=== PATIENT | male | born 1940 | race Caucasian/White ===

== ENCOUNTER 2020-11-25 15:11 | Inpatient (IN) ==
[2020-11-25] MEDS ORDERED: ZALEPLON 5 MG CAPSULE PO PRN (15:13)
[2020-11-25] MEDS ORDERED: ALUMINUM/MAGNES/SIMETH MAX STR 30 ML UDCUP PO PRN (15:13)
[2020-11-25] MEDS ORDERED: BISACODYL 5 MG TABLET PO PRN (15:13)
[2020-11-25] MEDS ORDERED: ACETAMINOPHEN 325 MG TABLET PO PRN (15:13)
[2020-11-25] MEDS ORDERED: hydrALAZINE 20 MG/1 ML VIAL IV PRN (15:13)
[2020-11-25] MEDS ORDERED: ONDANSETRON 4 MG/2 ML VIAL IV PRN (15:13)
[2020-11-25] MEDS: FUROSEMIDE 40 MG/4 ML VIAL IV SCH (17:13)
[2020-11-25] MEDS: PANTOPRAZOLE 40 MG TABLET PO SCH (17:13)
[2020-11-25 17:50] LABS: Basophils % 0.1 % (0.0-0.8); Eosinophils % 0.1 % (0.00-10.9); Hematocrit 39.5 VOL% (42.0-52.0); Hemoglobin 12.7 GM/DL (14.0-18.0); Immature Granulocytes % 0.7 %; Immature Granulocytes Absolute 0.05 #; Lymphocytes # 0.6 10*3/uL (1.4-4.0); Lymphocytes % 8.7 % (21.2-54.2); Mean Corpuscular HGB Conc 32.2 GM/DL (32-36); Mean Corpuscular Volume 103.4 FL (87-102); Mean Platelet Volume 11.4 FL (9.6-12.0); Monocytes % 13.1 % (1.7-12.7); Neutrophils % 77.3 % (38.7-73.9); Platelet Count 119 T/CUMM (130-400); Red Blood Count 3.82 MC/CUMM (3.8-5.5); Red Cell Distribution Width 14.1 % (9.3-17.3); White Blood Count 7.2 T/CUMM (4-12)
[2020-11-25 18:15] LABS: Albumin 3.6 G/DL (3.4-5.0); Bilirubin,Total 4.2 MG/DL (0.20-1.00); Calcium 8.9 MG/DL (8.5-10.1); Osmolality,Calculated 267.1 MOS/KG (273-304); Potassium 4.6 MMOL/L (3.5-5.1); Total Protein 7.7 G/DL (6.4-8.2)
[2020-11-25] MEDS: DOBUTamine 500 MG/250 ML PREMIX IV SCH (18:15)
[2020-11-25 19:22] LABS: Hypochromasia 1+
[2020-11-25 19:23] LABS: Platelet Estimate Adequate
[2020-11-25] MEDS: APIXABAN 5 MG TABLET PO SCH (20:29)
[2020-11-25] MEDS: RANOLAZINE 500 MG TABLET PO SCH (20:29)
[2020-11-25] MEDS: SIMVASTATIN 40 MG TABLET PO SCH (20:29)
[2020-11-26 00:46] LABS: Basophils % 0.3 % (0.0-0.8); Eosinophils % 0.2 % (0.00-10.9); Hematocrit 34.2 VOL% (42.0-52.0); Hemoglobin 11.4 GM/DL (14.0-18.0); Immature Granulocytes % 0.3 %; Immature Granulocytes Absolute 0.02 #; Lymphocytes # 0.4 10*3/uL (1.4-4.0); Lymphocytes % 7.5 % (21.2-54.2); Mean Corpuscular HGB Conc 33.3 GM/DL (32-36); Mean Corpuscular Volume 98.8 FL (87-102); Mean Platelet Volume 11.2 FL (9.6-12.0); Monocytes % 16.6 % (1.7-12.7); Neutrophils % 75.1 % (38.7-73.9); Platelet Count 98 T/CUMM (130-400); Red Blood Count 3.46 MC/CUMM (3.8-5.5); Red Cell Distribution Width 13.9 % (9.3-17.3); White Blood Count 5.8 T/CUMM (4-12)
[2020-11-26 01:03] LABS: Calcium 8.7 MG/DL (8.5-10.1); Osmolality,Calculated 266.5 MOS/KG (273-304); Risk Ratio 2.3
[2020-11-26 04:16] LABS: Hypochromasia Slight; Lymphocytes 7 % (20-55); Microcytosis Slight; Platelet Estimate Decreased; Segmented Neutrophils 76 % (50-85); Total Cells Counted 100
[2020-11-26] MEDS: SODIUM CHLORIDE 0.9% 1,000 ML IV SCH ×3 (08:18→21:42)
[2020-11-26] MEDS ORDERED: POLYETHYLENE GLYCOL POWDER 17 GM PACK PO SCH (09:00)
[2020-11-26] MEDS: PANTOPRAZOLE 40 MG TABLET PO SCH (10:01)
[2020-11-26] MEDS: RANOLAZINE 500 MG TABLET PO SCH ×2 (10:01→21:35)
[2020-11-26] MEDS: APIXABAN 5 MG TABLET PO SCH ×2 (10:01→21:34)
[2020-11-26] MEDS: ASPIRIN EC 81 MG TABLET PO SCH (10:01)
[2020-11-26] MEDS: MULTIVITAMIN LIQUID (CENTRUM) 60 ML BOTTLE PO SCH (10:02)
[2020-11-26] MEDS: METOPROLOL SUCCINATE XL 50 MG TABLET PO SCH (10:02)
[2020-11-26] MEDS: FUROSEMIDE 40 MG/4 ML VIAL IV SCH ×2 (10:03→18:49)
[2020-11-26] MEDS: DOBUTamine 500 MG/250 ML PREMIX IV SCH ×2 (11:02→16:41)
[2020-11-26] MEDS: SIMVASTATIN 40 MG TABLET PO SCH (21:34)
[2020-11-26] MEDS: POLYETHYLENE GLYCOL POWDER 17 GM PACK PO SCH (21:49)
[2020-11-27] MEDS: DOBUTamine 500 MG/250 ML PREMIX IV SCH ×2 (03:14→16:44)
[2020-11-27 04:29] LABS: Basophils % 0.2 % (0.0-0.8); Eosinophils # 0.1 10*3/uL (0.0-0.87); Eosinophils % 1.1 % (0.00-10.9); Hematocrit 32.5 VOL% (42.0-52.0); Hemoglobin 10.7 GM/DL (14.0-18.0); Immature Granulocytes % 0.5 %; Immature Granulocytes Absolute 0.03 #; Lymphocytes # 0.5 10*3/uL (1.4-4.0); Lymphocytes % 8.1 % (21.2-54.2); Mean Corpuscular HGB Conc 32.9 GM/DL (32-36); Mean Corpuscular Volume 99.1 FL (87-102); Mean Platelet Volume 10.8 FL (9.6-12.0); Monocytes % 17.6 % (1.7-12.7); Neutrophils % 72.5 % (38.7-73.9); Platelet Count 98 T/CUMM (130-400); Red Blood Count 3.28 MC/CUMM (3.8-5.5); Red Cell Distribution Width 13.9 % (9.3-17.3); White Blood Count 6.3 T/CUMM (4-12)
[2020-11-27 04:49] LABS: Eosinophils 2 % (0-10); Hypochromasia 1+; Lymphocytes 4 % (20-55); Microcytosis 1+; Platelet Estimate Decreased; Segmented Neutrophils 79 % (50-85); Total Cells Counted 100
[2020-11-27 05:07] LABS: Calcium 8.4 MG/DL (8.5-10.1); Osmolality,Calculated 264.2 MOS/KG (273-304); Potassium 3.3 MMOL/L (3.5-5.1)
[2020-11-27] MEDS ORDERED: POTASSIUM CHLORIDE 20 MEQ TABLET PO ONE (07:03)
[2020-11-27] MEDS: FUROSEMIDE 40 MG/4 ML VIAL IV SCH ×2 (10:09→17:31)
[2020-11-27] MEDS: ASPIRIN EC 81 MG TABLET PO SCH (10:10)
[2020-11-27] MEDS: PANTOPRAZOLE 40 MG TABLET PO SCH (10:10)
[2020-11-27] MEDS: RANOLAZINE 500 MG TABLET PO SCH ×2 (10:10→21:01)
[2020-11-27] MEDS: APIXABAN 5 MG TABLET PO SCH ×2 (10:10→21:01)
[2020-11-27] MEDS: METOPROLOL SUCCINATE XL 50 MG TABLET PO SCH (10:11)
[2020-11-27] MEDS: MULTIVITAMIN LIQUID (CENTRUM) 60 ML BOTTLE PO SCH (10:11)
[2020-11-27] MEDS: POLYETHYLENE GLYCOL POWDER 17 GM PACK PO SCH (21:01)
[2020-11-27] MEDS: SIMVASTATIN 40 MG TABLET PO SCH (21:02)
[2020-11-28 05:44] LABS: Basophils % 0.3 % (0.0-0.8); Eosinophils # 0.1 10*3/uL (0.0-0.87); Eosinophils % 2.1 % (0.00-10.9); Hematocrit 33.6 VOL% (42.0-52.0); Hemoglobin 11.4 GM/DL (14.0-18.0); Immature Granulocytes % 0.5 %; Immature Granulocytes Absolute 0.03 #; Lymphocytes # 0.5 10*3/uL (1.4-4.0); Lymphocytes % 8.4 % (21.2-54.2); Mean Corpuscular HGB Conc 33.9 GM/DL (32-36); Mean Corpuscular Volume 97.4 FL (87-102); Monocytes % 17.2 % (1.7-12.7); Neutrophils % 71.5 % (38.7-73.9); Platelet Count 107 T/CUMM (130-400); Red Blood Count 3.45 MC/CUMM (3.8-5.5); Red Cell Distribution Width 14.1 % (9.3-17.3); White Blood Count 5.8 T/CUMM (4-12)
[2020-11-28 06:12] LABS: Eosinophils 2 % (0-10); Lymphocytes 10 % (20-55); Platelet Estimate Adequate; Segmented Neutrophils 80 % (50-85); Total Cells Counted 100
[2020-11-28 06:46] LABS: Calcium 8.4 MG/DL (8.5-10.1); Osmolality,Calculated 271.5 MOS/KG (273-304); Potassium 3.7 MMOL/L (3.5-5.1)
[2020-11-28 08:01] VITALS: BP 121/62
[2020-11-28] MEDS: FUROSEMIDE 40 MG/4 ML VIAL IV SCH (08:58)
[2020-11-28] MEDS: RANOLAZINE 500 MG TABLET PO SCH (08:58)
[2020-11-28] MEDS: METOPROLOL SUCCINATE XL 50 MG TABLET PO SCH (08:58)
[2020-11-28] MEDS: PANTOPRAZOLE 40 MG TABLET PO SCH (08:59)
[2020-11-28] MEDS: ASPIRIN EC 81 MG TABLET PO SCH (08:59)
[2020-11-28] MEDS: APIXABAN 5 MG TABLET PO SCH (08:59)
[2020-11-28] MEDS: MULTIVITAMIN LIQUID (CENTRUM) 60 ML BOTTLE PO SCH (08:59)
== END 2020-11-28 11:46 | disposition home or self-care (01) | DRG 291 ==
LOC: INTOOBSV 15:42 → N.TELES 15:42
PROVIDERS: ADMIT Internal Medicine Interventional Cardiology; ATTEND Internal Medicine Interventional Cardiology

== ENCOUNTER 2021-02-16 17:58 | Inpatient (IN) ==
[2021-02-16] MEDS ORDERED: ONDANSETRON 4 MG/2 ML VIAL IV STA (20:38)
[2021-02-16 21:20] LABS: Basophils % 0.1 % (0.0-0.8); Hematocrit 35.1 VOL% (42.0-52.0); Hemoglobin 11.7 GM/DL (14.0-18.0); Immature Granulocytes % 1.3 %; Immature Granulocytes Absolute 0.11 #; Lymphocytes # 0.6 10*3/uL (1.4-4.0); Lymphocytes % 7.1 % (21.2-54.2); Mean Corpuscular HGB Conc 33.3 GM/DL (32-36); Mean Corpuscular Volume 98.9 FL (87-102); Mean Platelet Volume 12.3 FL (9.6-12.0); Monocytes % 12.3 % (1.7-12.7); Neutrophils % 79.2 % (38.7-73.9); Platelet Count 98 T/CUMM (130-400); Red Blood Count 3.55 MC/CUMM (3.8-5.5); Red Cell Distribution Width 18.8 % (9.3-17.3); White Blood Count 8.5 T/CUMM (4-12)
[2021-02-16 21:49] LABS: Albumin 3.3 G/DL (3.4-5.0); Calcium 8.8 MG/DL (8.5-10.1); Osmolality,Calculated 284.8 MOS/KG (273-304); Potassium 5.8 MMOL/L (3.5-5.1); Total Protein 7.8 G/DL (6.4-8.2)
[2021-02-16] MEDS ORDERED: SODIUM CHLORIDE 0.9% 500 ML IV STA (22:15)
[2021-02-16] MEDS ORDERED: DOBUTamine 500 MG/250 ML PREMIX IV PRN (22:23)
[2021-02-16] MEDS ORDERED: HYDROCORTISONE 100 MG VIAL IV STA (22:26)
[2021-02-16] MEDS ORDERED: PROMETHAZINE 25 MG/1 ML VIAL IM PRN (23:08)
[2021-02-16] MEDS ORDERED: MORPHINE 2 MG/1 ML SYRINGE IV PRN (23:08)
[2021-02-16] MEDS ORDERED: DEXTROSE 50% 25 GM/50 ML VIAL IV PRN (23:08)
[2021-02-16] MEDS ORDERED: ONDANSETRON 4 MG/2 ML VIAL IV PRN (23:08)
[2021-02-16] MEDS ORDERED: GLUCAGON 1 MG VIAL IM PRN (23:08)
[2021-02-16] MEDS ORDERED: ACETAMINOPHEN 325 MG TABLET PO PRN (23:08)
[2021-02-17 01:10] LABS: Hepatitis B Core IgM Quant 0.09 Index; Hepatitis B Surface Ag Quant < 0.10 Index; Hepatitis B Surface Ag Result Non-Reactive (NonReactive); Hepatitis C Virus Ab Quant 0.06 Index; Hepatitis C Virus Ab Result Non-Reactive (NonReactive)
[2021-02-17] MEDS: ALBUTEROL/IPRATROPIUM 3 ML NEB RESP TX SCH ×4 (01:20→18:25)
[2021-02-17] MEDS ORDERED: SODIUM POLYSTYRENE SULFATE 15 GM/60 ML BOTTLE PO ONE (01:46)
[2021-02-17] MEDS ORDERED: SODIUM CHLORIDE 0.9% 1,000 ML IV SCH (02:00)
[2021-02-17 02:48] LABS: Bilirubin,Urine Negative (Negative); Blood, Urine Negative (Negative); Glucose,Urine (UA) Negative (Negative); Hyaline Casts,Urine 33 /LPF (0-3); Ketones,Urine Negative (Negative); Nitrite,Urine Negative (Negative); Protein,Urine 100 MG/DL; RBC,Urine 2 /HPF (0-4); Squamous Epithelial Cell,Urine Occasional /HPF (0-10); Urine Appearance CLOUDY (Clear); Urine Color Amber (Yellow); Urine Specific Gravity 1.017 (1.001-1.035)
[2021-02-17 05:31] LABS: Hematocrit 32.8 VOL% (42.0-52.0); Hemoglobin 10.8 GM/DL (14.0-18.0); Immature Granulocytes Absolute 0.08 #; Lymphocytes # 0.4 10*3/uL (1.4-4.0); Mean Corpuscular HGB Conc 32.9 GM/DL (32-36); Mean Corpuscular Volume 99.1 FL (87-102); Mean Platelet Volume 12.3 FL (9.6-12.0); Monocytes % 7.4 % (1.7-12.7); NRBC # 0.07 10*3/uL; Neutrophils % 86.6 % (38.7-73.9); Platelet Count 95 T/CUMM (130-400); Red Blood Count 3.31 MC/CUMM (3.8-5.5); Red Cell Distribution Width 18.8 % (9.3-17.3); White Blood Count 8.1 T/CUMM (4-12)
[2021-02-17 06:11] LABS: Bilirubin,Total 7.8 MG/DL (0.20-1.00); Calcium 8.4 MG/DL (8.5-10.1); Osmolality,Calculated 291.4 MOS/KG (273-304); Risk Ratio 6.13; Total Protein 7.1 G/DL (6.4-8.2); VLDL Cholesterol 11.2 MG/DL
[2021-02-17] MEDS: ASPIRIN EC 81 MG TABLET PO SCH (08:20)
[2021-02-17] MEDS: PANTOPRAZOLE 40 MG TABLET PO SCH (08:20)
[2021-02-17] MEDS ORDERED: ENOXAPARIN 40 MG/0.4 ML SYRINGE SUBCUT SCH (09:00)
[2021-02-17] MEDS ORDERED: APIXABAN 5 MG TABLET PO SCH (09:00)
[2021-02-17] MEDS: DOBUTamine 500 MG/250 ML PREMIX IV SCH (14:09)
[2021-02-17] MEDS: SODIUM CHLORIDE 1 GM TABLET PO SCH ×2 (15:21→21:02)
[2021-02-17] MEDS: APIXABAN 2.5 MG TABLET PO SCH (21:02)
[2021-02-18] MEDS: ALBUTEROL/IPRATROPIUM 3 ML NEB RESP TX SCH ×4 (02:35→19:00)
[2021-02-18 06:42] VITALS: BP 107/56
[2021-02-18 08:15] LABS: Eosinophils % 0.1 % (0.00-10.9); Hematocrit 31.5 VOL% (42.0-52.0); Hemoglobin 10.9 GM/DL (14.0-18.0); Immature Granulocytes % 0.5 %; Immature Granulocytes Absolute 0.04 #; Lymphocytes # 0.5 10*3/uL (1.4-4.0); Mean Corpuscular HGB Conc 34.6 GM/DL (32-36); Mean Corpuscular Volume 96.6 FL (87-102); Mean Platelet Volume 11.8 FL (9.6-12.0); Monocytes % 14.3 % (1.7-12.7); NRBC # 0.06 10*3/uL; Neutrophils % 79.1 % (38.7-73.9); Platelet Count 101 T/CUMM (130-400); Red Blood Count 3.26 MC/CUMM (3.8-5.5); Red Cell Distribution Width 18.4 % (9.3-17.3); White Blood Count 8.2 T/CUMM (4-12)
[2021-02-18] MEDS: PANTOPRAZOLE 40 MG TABLET PO SCH (08:40)
[2021-02-18] MEDS: SODIUM CHLORIDE 1 GM TABLET PO SCH ×2 (08:40→20:27)
[2021-02-18] MEDS: APIXABAN 2.5 MG TABLET PO SCH ×2 (08:40→20:27)
[2021-02-18] MEDS: ASPIRIN EC 81 MG TABLET PO SCH (08:40)
[2021-02-18 08:43] LABS: Calcium 8.5 MG/DL (8.5-10.1); Osmolality,Calculated 277.8 MOS/KG (273-304); Potassium 3.7 MMOL/L (3.5-5.1)
[2021-02-18 08:58] LABS: Hypochromasia Slight; Platelet Estimate Decreased
[2021-02-18] MEDS: DOBUTamine 500 MG/250 ML PREMIX IV SCH ×2 (09:55→12:31)
[2021-02-19] MEDS: ALBUTEROL/IPRATROPIUM 3 ML NEB RESP TX SCH ×4 (00:06→19:00)
[2021-02-19] MEDS: FLUTICASONE 50 MCG NASAL SPRAY 16 GM BOTTLE BOTH NARES PRN ×2 (01:15→21:24)
[2021-02-19 05:58] LABS: Basophils % 0.1 % (0.0-0.8); Eosinophils % 0.5 % (0.00-10.9); Hematocrit 32.5 VOL% (42.0-52.0); Hemoglobin 11.1 GM/DL (14.0-18.0); Immature Granulocytes % 0.8 %; Immature Granulocytes Absolute 0.06 #; Lymphocytes # 0.5 10*3/uL (1.4-4.0); Lymphocytes % 6.6 % (21.2-54.2); Mean Corpuscular HGB Conc 34.2 GM/DL (32-36); Mean Corpuscular Volume 97.3 FL (87-102); Mean Platelet Volume 11.3 FL (9.6-12.0); Monocytes % 14.5 % (1.7-12.7); NRBC # 0.08 10*3/uL; Neutrophils % 77.5 % (38.7-73.9); Platelet Count 91 T/CUMM (130-400); Red Blood Count 3.34 MC/CUMM (3.8-5.5); Red Cell Distribution Width 18.5 % (9.3-17.3); White Blood Count 7.7 T/CUMM (4-12)
[2021-02-19 06:15] LABS: Calcium 8.4 MG/DL (8.5-10.1); Osmolality,Calculated 275.6 MOS/KG (273-304); Potassium 3.7 MMOL/L (3.5-5.1)
[2021-02-19 06:19] LABS: Platelet Estimate Decreased
[2021-02-19] MEDS: ASPIRIN EC 81 MG TABLET PO SCH (08:20)
[2021-02-19] MEDS: APIXABAN 2.5 MG TABLET PO SCH ×2 (08:20→21:24)
[2021-02-19] MEDS: PANTOPRAZOLE 40 MG TABLET PO SCH (08:20)
[2021-02-19] MEDS: DOBUTamine 500 MG/250 ML PREMIX IV SCH (12:45)
[2021-02-20] MEDS: ALBUTEROL/IPRATROPIUM 3 ML NEB RESP TX SCH ×4 (01:25→18:45)
[2021-02-20 05:34] LABS: Basophils % 0.1 % (0.0-0.8); Eosinophils # 0.1 10*3/uL (0.0-0.87); Eosinophils % 1.3 % (0.00-10.9); Hematocrit 33.5 VOL% (42.0-52.0); Hemoglobin 11.3 GM/DL (14.0-18.0); Immature Granulocytes % 0.7 %; Immature Granulocytes Absolute 0.06 #; Lymphocytes # 0.6 10*3/uL (1.4-4.0); Lymphocytes % 7.5 % (21.2-54.2); Mean Corpuscular HGB Conc 33.7 GM/DL (32-36); Mean Corpuscular Volume 96.8 FL (87-102); Mean Platelet Volume 10.8 FL (9.6-12.0); Monocytes % 16.6 % (1.7-12.7); NRBC # 0.06 10*3/uL; Neutrophils % 73.8 % (38.7-73.9); Red Cell Distribution Width 18.6 % (9.3-17.3); White Blood Count 8.5 T/CUMM (4-12)
[2021-02-20 05:46] LABS: Platelet Count 83 T/CUMM (130-400); Red Blood Count 3.46 MC/CUMM (3.8-5.5)
[2021-02-20 06:00] LABS: Hypochromasia Slight; Lymphocytes 6 % (20-55); Microcytosis Slight; Nucleated Red Blood Cells 1 (0-5); Platelet Estimate Decreased; Segmented Neutrophils 82 % (50-85); Total Cells Counted 100
[2021-02-20 06:03] LABS: Calcium 8.4 MG/DL (8.5-10.1); Osmolality,Calculated 266.2 MOS/KG (273-304); Potassium 3.4 MMOL/L (3.5-5.1)
[2021-02-20] MEDS ORDERED: POTASSIUM CHLORIDE 20 MEQ TABLET PO ONE (08:54)
[2021-02-20] MEDS: ASPIRIN EC 81 MG TABLET PO SCH (08:55)
[2021-02-20] MEDS: APIXABAN 2.5 MG TABLET PO SCH (08:55)
[2021-02-20] MEDS: PANTOPRAZOLE 40 MG TABLET PO SCH (08:56)
[2021-02-20] MEDS ORDERED: carvediloL 3.125 MG TABLET PO SCH (09:00)
[2021-02-20] MEDS: DOBUTamine 500 MG/250 ML PREMIX IV SCH (16:17)
[2021-02-22] MEDS ORDERED: INFLUENZA VIRUS VACCINE 0.5 ML SYRINGE IM ONE (08:00)
== END 2021-02-20 19:47 | disposition hospice, home (50) | DRG 291 ==
LOC: N.ED 17:58 → SUATTDRO 23:08 → N.EDINP 23:08 → N.CC 23:22
PROVIDERS: ADMIT Internal Medicine; ATTEND Internal Medicine